=== PATIENT | female | born 1975 | race Caucasian/White ===

== ENCOUNTER 2017-10-04 07:28 | Emergency (ER) ==
[2017-10-04 07:31] VITALS: BP 154/89; TEMP 98.5; BMI 37.0
--- NOTE | 2017-10-04 09:10 | ED.PDOC ---
General ED Provider: Dr. ROSIE DUMONT Chief Complaint: Non-specific Complaint Stated Complaint: chest pain Time Seen by Physician: 07:30 (posterior chest pain with spasm x1 week) Mode of Arrival: Wheelchair Information Source: Patient Exam Limitations: No limitations Primary Care Provider: CONNIE DOWD Referred to ED by: Other (NO SYNCOPE ) Nursing and Triage Documentation Reviewed and Agree: Yes Reviewed sepsis parameters & appropriate labs ordered?: Yes System Inflammatory Response Syndrome: Not Applicable Sepsis Protocol: For patient's 13 years and over: Temp is 96.8 and below OR 101 and greater Pulse >90 BPM Resp >20/minute Acutely Altered Mental Status Are patient's symptoms suggestive of a new infection, such as: -Pneumonia -Skin, Soft Tissue -Endocarditis -UTI -Bone, Joint Infection -Implantable Device -Acute Abdominal Infection -Wound Infection -Meningitis -Blood Stream Catheter Infection -Unknown System Inflammatory Response Syndrome: Not Applicable Cardiovascular Complaint Exam - Chest Pain Complaint/Exam Onset: Gradual Duration: 1 week Symptoms Are: Still present Timing: Intermittent Length of Chest Pain Episodes: 7 days Initial Severity: Moderate Current Severity: Moderate Location: Reports: Other (posterior between shoulder blades ) Pain Radiates: Reports: None Character: Reports: Aching, Tightness (movements makes pain worse ) Aggravating: Reports: Movement Alleviating: Reports: Rest Associated Signs and Symptoms: Reports: Cough. Denies: Diaphoresis, Nausea, Vomiting, Fever, Palpitations, Hemoptysis, Back pain, Abdominal pain, Dizziness , Short of air, Calf pain, Calf swelling Related History: Reports: Other (intermittent bradycardia noted last november but did not follow up due to insurance issues has not had care for bradycardia ) Related Surgical History: Reports: None History of Healthcare-Acquired Pneumonia: Reports: No AMI/ACS Risk Factors: Reports: None TAD Risk Factors: Reports: None Pulmonary Embolism Risk Factors: Reports: None Prior Care for this Complaint: No Recent Stress Test: No Recent Echo/LV Function: No JVD Present: No Subcutaneous Emphysema Present: No Diminshed Breath Sounds: No Reproducible Chest Wall Pain: No Bilateral Pulses Present: No Unequal Pulses Noted: No If Risk Factors for AMI/ACS Consider: EKG, Cardiac Enzymes Differential Diagnoses: ACS, Unstable Angina, Lower Resp. Infection, Pulmonary Embolism, Other (dissection) Quality Indicators For Acute ND or Cardiac Chest Pain: EKG in 10min. Quality Indicator For Non-Traumatic Chest Pain/Syncope: EKG Performed Review of Systems - Review Of Systems Constitutional: Reports: No symptoms Eyes: Reports: No symptoms Ears, Nose, Mouth, Throat: Reports: No symptoms Respiratory: Reports: No symptoms Cardiac: Reports: Chest pain (posterior). Denies: Irregular heart rate, Lightheadedness, Palpitations (HAS HAD INTERMITTENT BRADYCARDIA SINCE LAST NOVEMBER. IT WAS NOTED AT [facility]), Syncope GI: Reports: No symptoms : Reports: No symptoms Musculoskeletal: Reports: No symptoms Skin: Reports: No symptoms Neurological: Reports: No symptoms Endocrine: Reports: No symptoms Hematologic/Lymphatic: Reports: No symptoms All Other Systems: Reviewed and Negative Past Medical History - Past Medical History Previously Healthy: Yes Endocrine: Reports: None Cardiovascular: Reports: None Respiratory: Reports: None Hematological: Reports: None Gastrointestinal: Reports: GERD Genitourinary: Reports: None Neuro/Psych: Reports: None Musculoskeletal: Reports: None Cancer: Reports: None Last Menstrual Period: due any day - Surgical History General Surgical History: Reports: None - Family History Family History: Reports: None - Social History Smoking Status: Never smoker Hx Substance Use: No Alcohol Screening: None Physical Exam - Physical Exam Appearance: Well-appearing, No pain distress, Well-nourished Eyes: TRAVON, EOMI, Conjunctiva clear ENT: Ears normal, Nose normal, Oropharynx normal Respiratory: Airway patent, Breath sounds clear, Breath sounds equal, Respirations nonlabored Cardiovascular: RRR, Pulses normal, No rub, No murmur GI/: Soft, Nontender, No masses, Bowel sounds normal, No Organomegaly Musculoskeletal: Normal strength, ROM intact, No edema, No calf tenderness Skin: Warm, Dry, Normal color Neurological: Sensation intact, Motor intact, Reflexes intact, Cranial nerves intact, Alert, Oriented Psychiatric: Affect appropriate, Mood appropriate Interpretation - Account Officer Rate: Normal Rhythm: Sinus Ectopy: PVCs Re-Evaluation - Re-Evaluation Time of Re-Evaluation: 09:12 Status: Unchanged Vital Signs Stable: Yes (intermittent karen cardia HR BETWEEN 40'S AND 50'S) Pain Level: 2/10(PRESENT KIRSTA FROM X RAY) Appearance: NAD Lungs: Clear Skin: Warm and Dry Neuro: Alert and Oriented X3 CV: RRR Physician Notification - Case Discussed Physician Notified: NILE Time of Notification: 10:00 (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 ) Critical Care Note - Critical Care Note Total Time (mins): 0 Course - Course Hematology/Chemistry: 10/04/17 07:58 10/04/17 07:58 Orders, Labs, Meds: Lab Review 10/04/17 10/04/17 10/04/17 07:58 07:58 07:58 WBC 6.92 RBC 4.77 Hgb 14.0 Hct 39.8 MCV 83.4 MCH 29.4 MCHC 35.2 RDW Coeff of Ilan 12.6 Plt Count 171 Immature Gran % (Auto) 0.3 Neut % (Auto) 57.1 Lymph % (Auto) 32.8 Cooper % (Auto) 8.2 Eos % (Auto) 1.2 Baso % (Auto) 0.4 Immature Gran # (Auto) 0.0 Neut # (Auto) 4.0 Lymph # (Auto) 2.3 Cooper # (Auto) 0.6 Eos # (Auto) 0.1 Baso # (Auto) 0.0 D-Dimer (Manual) Sodium 140 Potassium 3.5 Chloride 110 H Carbon Dioxide 19 L Anion Gap 14.5 BUN 10 Creatinine 0.71 Estimated GFR (MDRD) 91.00 BUN/Creatinine Ratio 14.08 Glucose 93 Calcium 9.3 Total Bilirubin 0.7 AST 18 ALT 16 Alkaline Phosphatase 51 Total Creatine Kinase 109 Troponin I < 0.0100 Total Protein 7.1 Albumin 3.7 Globulin 3.4 Albumin/Globulin Ratio 1.09 Serum , Qual Negative 10/04/17 07:58 WBC RBC Hgb Hct MCV MCH MCHC RDW Coeff of Ilan Plt Count Immature Gran % (Auto) Neut % (Auto) Lymph % (Auto) Cooper % (Auto) Eos % (Auto) Baso % (Auto) Immature Gran # (Auto) Neut # (Auto) Lymph # (Auto) Cooper # (Auto) Eos # (Auto) Baso # (Auto) D-Dimer (Manual) 204.44 Sodium Potassium Chloride Carbon Dioxide Anion Gap BUN Creatinine Estimated GFR (MDRD) BUN/Creatinine Ratio Glucose Calcium Total Bilirubin AST ALT Alkaline Phosphatase Total Creatine Kinase Troponin I Total Protein Albumin Globulin Albumin/Globulin Ratio Serum , Qual Orders Category Date Time Status EKG-(ED ONLY) Stat CARDIO 10/04/17 07:49 Completed NPO REMINDER: IMAGING ONCE CARE 10/04/17 07:51 Completed ED IV/MEDIPORT/POWERPORT .ONCE EMERGENCY 10/04/17 07:49 Active CBC W/ AUTO DIFF Stat LAB 10/04/17 07:58 Completed COMPREHENSIVE METABOLIC PANEL Stat LAB 10/04/17 07:58 Completed CREATINE KINASE Stat LAB 10/04/17 07:58 Completed D-DIMER Stat LAB 10/04/17 07:58 Completed SERUM Stat LAB 10/04/17 07:58 Completed TROPONIN I Stat LAB 10/04/17 07:58 Completed 0.9 % Sodium Chloride [Saline Flush] MEDS 10/04/17 07:48 Active 1 sy[address] IVF PRN PRN [address] THORACIC SPINE W/O CONTRAST Stat RADS 10/04/17 07:52 Ordered CTA ANGIO CHEST Stat RADS 10/04/17 07:49 Ordered Medications Generic Name Dose Route Start Last Admin Trade Name Freq PRN Reason Stop Dose Admin Sodium Chloride 1 syr 10/04/17 07:48 Saline Flush IVF PRN PRN To flush IV Vital Signs: Temp Pulse Resp BP Pulse Ox 10/04/17 07:28 98.5 F 79 20 154/89 H 98 NEREIDA Risk Score NEREIDA Risk Score: Risk Score Odds of by 30D 0 0.1 (0.1-0.2) 1 0.3 (0.2-0.3) 2 0.4 (0.3-0.5) 3 0.7 (0.6-0.9) 4 1.2 (1.0-1.5) 5 2.2 (1.9-2.6) 6 3.0 (2.5-3.6) 7 4.8 (3.8-6.1) Departure - Departure Time of Disposition: 10:30 (PMD STATED SINCE THERE IS NO SYNCOPE PLACE MONITOR CONTROL PAIN ASK PT TO SEE PMD OUT PT. ) Disposition: HOME SELF-CARE Discharge Problem: Bradycardia Chest pain Qualifiers: Chest pain type: unspecified Qualified Code(s): R07.9 - Chest pain, unspecified Instructions: Angina (DC), Chest Pain (DC) Condition: Good Pt referred to PMD for follow-up: Yes IPMP verified?: No Additional Instructions: Please call your Family Physician as soon as possible to schedule a follow-up appointment.PLEASE STOP ALL YOUR MEDS TILL YOU SEE Allergies/Adverse Reactions: Allergies No Known Allergies Allergy (Verified 10/04/17 07:51) Home Medications: Ambulatory Orders Omeprazole [Prilosec] 20 mg PO DAILY 08/21/13 Trang Root 550 mg PO DAILY 10/04/17 Hydrocodone/Acetaminophen [Palmer 10-325 Tablet] 1 each PO Q8HR #14 tablet Disposition Discussed With: Patient
[2017-10-04] MEDS ORDERED: MORPHINE 4 MG/ML SYRINGE IVP STA ×2 (09:36→09:57)
[2017-10-04] MEDS ORDERED: ZOFRAN 4 MG/2 ML IM STA (09:36)
--- NOTE | 2017-10-04 09:44 | CT ---
EXAM: CT Angiogram Chest. HISTORY: Chest pain, left side. Back pain. COMPARISON: Chest radiograph 05/18/2014. TECHNIQUE: Multiple axial images of the chest were obtained following intravenous administration of 125 mL of Omnipaque 350, low osmolar. Images were reformatted in the sagittal and coronal plane. 3- D and maximum intensity projection reformatted images were created on an independent workstation. FINDINGS: Heart size is normal. No pericardial effusion identified. No mediastinal, hilar, or axil nick lymphadenopathy identified. Thoracic aorta is normal in caliber without evidence for aortic diss ection. Timing of the contrast bolus is suboptimal for evaluation of the pulmonary arteries. No large centra l pulmonary arterial filling defect is identified. Evaluation of the lobar and more distal pulmonary arteries is limited. The lungs are clear without pleural effusion or pneumothorax. Limited images of the upper abdomen are unremarkable. No acute osseous abnormality identified. IMPRESSION: 1. Limited evaluation for pulmonary embolus due to timing of the bolus. No large central pulmonary embolus identified. Correlate with VQ scan if further evaluation is needed. 2. No evidence for aortic dissection or other acute abnormality of the chest.
--- NOTE | 2017-10-04 09:47 | CT ---
EXAM: CT thoracic spine without contrast. HISTORY: Back pain, chest pain. COMPARISON: Chest radiograph 05/18/2014. TECHNIQUE: Multiple axial images of the thoracic spine were obtained without intravenous contrast. Images were reformatted in the sagittal and coronal planes. FINDINGS: The normal curvature and alignment are maintained. Vertebral body and intervertebral disc heights are normal. No fracture or subluxation is seen. No significant central canal stenosis iden tified. Adjacent soft tissues are unremarkable. IMPRESSION: No acute abnormality of the thoracic spine.
[2017-10-04] MEDS ORDERED: ZOFRAN 4 MG/2 ML IVP STA (09:57)
== END 2017-10-04 10:35 | disposition home or self-care (01) ==
LOC: ED 07:28
DX: R07.9 Chest pain, unspecified (principal); R00.1 Bradycardia, unspecified; R05 Cough
CPT/HCPCS: 36415; 80053; 82550; 84484; 84703; 85025; 85379; 93005; 93010; 96374; 96375; 99283

== ENCOUNTER 2018-03-24 11:09 | Outpatient (CLI) ==
--- NOTE | 2018-03-24 11:52 | DI ---
EXAM: Two views of the chest. History: Pleuritic chest pain. Comparison: Chest radiograph 05/18/2014 Findings: Heart size is normal. No focal consolidation. No appreciable pleural fluid and no pneumo thorax. No acute osseous abnormalities. Impression: No acute cardiopulmonary process
--- NOTE | 2018-03-24 11:55 | DI ---
EXAM: Three views of the thoracic spine. History: Acute left-sided thoracic back pain. Comparison: CT thoracic spine 10/04/2017 Findings: No acute fracture or subluxation of the thoracic spine. Mild multilevel disc space narrow ing with a few tiny osteophytes. Impression: 1. No acute osseous abnormality of the thoracic spine. 2. Mild degenerative disc disease
== END 2018-03-24 11:10 | disposition home or self-care (01) ==
LOC: RAD 11:09
PROVIDERS: ATTEND Family Medicine
DX: M54.6 Pain in thoracic spine (principal); R07.81 Pleurodynia